=== PATIENT | female | born 1995 | race Caucasian/White ===

== ENCOUNTER 2017-12-18 03:54 | Emergency (ER) | payer OTHER ==
[~2017-12-18] VITALS: Ht 167.6 cm; Wt 68.5 kg
[2017-12-18 04:23] LABS: BACTERIA,URINE FEW /HPF (0-FEW); BILIRUBIN,URINE NEG (NEG); CLARITY,URINE HAZY; COLOR,URINE YELLOW; GLUCOSE,URINE NEG (NEG); NITRITE,URINE NEG (NEG); RBC,URINE OCC /HPF (0-2); SQUAMOUS EPITHELIAL CELL,UR OCC /LPF; UROBILINOGEN,URINE 0.2 mg/dL (0.2 mg/dL); WBC,URINE >40 /HPF (0-4)
[2017-12-18] MEDS ORDERED: ONDANSETRON ODT 4 MG TAB.RAPDIS ONE (04:57)
[2017-12-18] MEDS ORDERED: HYDROcodone/APAP 5/325MG 1 TAB TABLET PO ONE (05:00)
[2017-12-18] MEDS ORDERED: PHENAZOPYRIDINE 200 MG TABLET. PO ONE (05:00)
[2017-12-18] MEDS ORDERED: cefTRIAXone IM 1 GM VIAL IM ONE (05:00)
[2017-12-18] MEDS ORDERED: ONDANSETRON ODT 4 MG TAB.RAPDIS PO ONE (05:00)
--- NOTE | 2017-12-18 05:07 | PHYS DOC ---
Past History Past Medical History: Anxiety Past Surgical History: Tonsillectomy Alcohol Use: Rarely Drug Use: Marijuana Adult General Chief Complaint Chief Complaint: PAIN ON URINATION HPI HPI 22-year-old female presents with dysuria. The patient was in her normal state of health until earlier today when she began to have lower abdominal pain. The pain is increased significantly throughout the day and she was unable to sleep. She feels like she needs to urinate, but it is painful to go. She has urgency and frequency. She denies hematuria. She denies vaginal discharge, strange odor , or itching. She is sexually active with one partner. She is not concern for STD. She denies fever or chills. Review of Systems Review of Systems Constitutional: Denies fever or chills [] Eyes: Denies change in visual acuity, redness, or eye pain [] HENT: Denies nasal congestion or sore throat [] Respiratory: Denies cough or shortness of breath [] Cardiovascular: No additional information not addressed in HPI [] GI: Denies abdominal pain, nausea, vomiting, bloody stools or diarrhea [] : Dysuria, urinary frequency[] Musculoskeletal: Denies back pain or joint pain [] Integument: Denies rash or skin lesions [] Neurologic: Denies headache, focal weakness or sensory changes [] Endocrine: Denies polyuria or polydipsia [] All other systems were reviewed and found to be within normal limits, except as documented in this note. Current Medications Current Medications Current Medications Medications (Trade) Dose Ordered Sig/Matt Start Time Stop Time Status Last Admin Dose Admin Acetaminophen/ Hydrocodone Bitart (Lortab 5/325) 1 tab 1X ONCE 12/18/17 05:00 12/18/17 05:00 DC Ceftriaxone Sodium (Rocephin Im) 1 gm 1X ONCE 12/18/17 05:00 12/18/17 05:01 Hydromorphone HCl (Dilaudid) 1 mg 1X ONCE 12/18/17 05:15 12/18/17 05:16 Ondansetron HCl (Zofran Odt) 4 mg 1X ONCE 12/18/17 05:00 12/18/17 05:01 UNV Phenazopyridine HCl (Pyridium) 200 mg 1X ONCE 12/18/17 05:00 12/18/17 05:01 Allergies Allergies Allergies Coded Allergies Type Severity Reaction Last Updated Verified No Known Drug Allergies 12/18/17 No Physical Exam Physical Exam Constitutional: Well developed, well nourished, no acute distress, non-toxic appearance. [] HENT: Normocephalic, atraumatic, bilateral external ears normal, oropharynx moist, no oral exudates, nose normal. [] Eyes: PERRLA, EOMI, conjunctiva normal, no discharge. [] Neck: Normal range of motion, no tenderness, supple, no stridor. [] Cardiovascular:Heart rate regular rhythm, no murmur [] Lungs & Thorax: Bilateral breath sounds clear to auscultation [] Abdomen: Bowel sounds normal, soft, no masses, no pulsatile masses. Mild suprapubic tenderness.[] Skin: Warm, dry, no erythema, no rash. [] Back: No tenderness, no CVA tenderness. [] Extremities: No tenderness, no cyanosis, no clubbing, ROM intact, no edema. [] Neurologic: Alert and oriented X 3, normal motor function, normal sensory function, no focal deficits noted. [] Psychologic: Affect normal, judgement normal, mood normal. [] Current Patient Data Vital Signs Vital Signs Date Time Temp Pulse Resp B/P (MAP) Pulse Ox O2 Delivery O2 Flow Rate FiO2 12/18/17 03:54 98.2 90 22 100 Room Air Lab Results Laboratory Tests Test 12/18/17 03:23 12/18/17 04:05 POC Urine HCG, Qualitative hcg negative (Negative) Urine Collection Type Unknown Urine Color Yellow Urine Clarity Hazy Urine pH 7.0 Urine Specific [place] 1.010 Urine Protein Trace (NEG-TRACE) Urine Glucose (UA) Neg mg/dL (NEG) Urine Ketones (Stick) Neg mg/dL (NEG) Urine Blood Mod (NEG) Urine Nitrite Neg (NEG) Urine Bilirubin Neg (NEG) Urine Urobilinogen Dipstick 0.2 mg/dL (0.2 mg/dL) Urine Leukocyte Esterase Large (NEG) Urine RBC Occ /HPF (0-2) Urine WBC >40 /HPF (0-4) Urine Squamous Epithelial Cells Occ /LPF Urine Bacteria Few /HPF (0-FEW) EKG EKG [] Radiology/Procedures Radiology/Procedures [] Impressions: CT abdomen and pelvis. HISTORY: Pubic pain, pain on urination, dysuria CT scan the abdomen and pelvis was done using without contrast. Lung bases are clear. There is no effusion. A liver lesion is not identified. There is no calcified gallstone in the gallbladder. Spleen and adrenal glands are normal. Pancreas is unremarkable. There is no mass or hydronephrosis in the kidneys. A renal or ureteral calculus is not identified. There is increased stool throughout the colon. Appendix is normal. Uterus and ovaries are normal. There is a small 2.3 cm follicle in the left ovary. There is no bowel obstruction or ascites or adenopathy. IMPRESSION: 1. Small follicle left ovary. 2. Normal appendix. 3. No renal or ureteral calculus noted. 4. Increased stool in the colon. Course & Med Decision Making Course & Med Decision Making Pertinent Labs and Imaging studies reviewed. (See chart for details) The patient's urinalysis is significant for infection. Given her pain, I will give her Rocephin IM and discharge her with a prescription for Keflex for 3 days. The patient is having significant amount of pain, more than I would expect. She is tearful and pale. Given the sudden onset of her pain over a few hours I am concerned for kidney stone. I will perform a noncontrast CT. I offered the patient pain medication and she would prefer a shot over the pills with her work more quickly. I will give her 1 mg of Dilaudid and 4 mg of Zofran ODT. I will also give 200 mg of Pyridium by mouth. The patient's CT of the abdomen and pelvis does not show a stone. Findings are unremarkable. There is a small follicle and one ovary and increased stool burden. It is possible that the ovarian follicle led to some free fluid similar to a rupturing array consistent and maybe this contributed to her pain. Or possibly her urinary tract infection was just that painful. She is feeling better at this time. She is stable for discharge. [] Dragon Disclaimer Dragon Disclaimer This electronic medical record was generated, in whole or in part, using a voice recognition dictation system. Departure Departure: Referrals: JOE ALMEIDA (PCP) Scripts Cephalexin (KEFLEX) 500 Mg Capsule 1 CAP PO TID for 3 Days, #9 CAP Prov: RAGHAV CADET DO 12/18/17 RAGHAV CADET DO Dec 18, 2017 05:07
[2017-12-18] MEDS ORDERED: CEPH-264 PO (05:09)
[2017-12-18] MEDS ORDERED: HYDROmorphone PF 1 MG/ML DISP.SYRIN IM ONE (05:15)
[2017-12-18 05:22] VITALS: BP 117/64
--- NOTE | 2017-12-18 05:46 | RAD ---
CT abdomen and pelvis. HISTORY: Pubic pain, pain on urination, dysuria CT scan the abdomen and pelvis was done using without contrast. Lung bases are clear. There is no effusion. A liver lesion is not identified. There is no calcified gallstone in the gallbladder. Spleen and adrenal glands are normal. Pancreas is unremarkable. There is no mass or hydronephrosis in the kidneys. A renal or ureteral calculus is not identified. There is increased stool throughout the colon. Appendix is normal. Uterus and ovaries are normal. There is a small 2.3 cm follicle in the left ovary. There is no bowel obstruction or ascites or adenopathy. IMPRESSION: 1. Small follicle left ovary. 2. Normal appendix. 3. No renal or ureteral calculus noted. 4. Increased stool in the colon. PQRS Compliance Statement: One or more of the following individualized dose reduction techniques were utilized for this examination: 1. Automated exposure control 2. Adjustment of the mA and/or kV according to patient size 3. Use of iterative reconstruction technique Electronically signed by: Casimiro Jean MD (12/18/2017 5:42 AM) [id number]
== END 2017-12-18 05:55 | disposition home or self-care (01) ==
LOC: ER 03:54
DX: N83.02 Follicular cyst of left ovary (principal); F41.9 Anxiety disorder, unspecified
CPT/HCPCS: 74176; 81001; 81025; 96372; 99285; J0696; J1170; Q0162; 87086